=== PATIENT | female | born 1945 | race Caucasian/White ===

== ENCOUNTER 2018-02-13 19:51 | Inpatient (IN) | payer OTHER, BC ==
[~2018-02-13] VITALS: Ht 172.7 cm; Wt 89.8 kg
[~2018-02-13 19:51] MED LIST: AUGMENTIN 875875 M1 PO; NORCO 7.5-3251 EACH PO
[2018-02-13 19:52] VITALS: BP 179/86
[2018-02-13] MEDS ORDERED: REGLAN 10 MG TA10 MG PO (20:00)
[2018-02-13] MEDS ORDERED: DHA100 MG PO (20:01)
[2018-02-13] MEDS ORDERED: WELLBUTRIN SR150 MG PO (20:01)
[2018-02-13] MEDS ORDERED: CARTIA XT240 M1 PO (20:01)
[2018-02-13] MEDS ORDERED: OMEPRAZOLE40 MG PO (20:02)
[2018-02-13] MEDS ORDERED: SYNTHROID137 MC1 PO (20:02)
[2018-02-13] MEDS ORDERED: AMITRIPTYLINE H25 M2 PO (20:02)
[2018-02-13] MEDS ORDERED: BREO ELLIPTA 11 EACH INH (20:03)
[2018-02-13] MEDS ORDERED: MYRBETRIQ50 MG PO (20:03)
[2018-02-13] MEDS ORDERED: FLONASE 0.05%50 MCG NASAL (20:04)
[2018-02-13] MEDS ORDERED: LIPITOR40 MG PO (20:04)
[2018-02-13] MEDS ORDERED: LANTUS100 UNIT/M SUBQ (20:04)
[2018-02-13] MEDS ORDERED: PLAVIX 75 MG TA75 M1 PO (20:04)
[2018-02-13] MEDS ORDERED: HUMALOG100 UNIT/1 SUBQ (20:05)
[2018-02-13 20:55] LABS: ABSOLUTE NEUTROPHILS 6.6 thou/uL (1.4-8.2); BASOPHILS 1.1 % (0.0-2.0); EOSINOPHILS 1.7 % (0.0-3.0); HEMATOCRIT 37.6 % (37.0-47.0); HEMOGLOBIN 12.7 gm/dL (12.0-15.0); LYMPHOCYTES 12.7 % (24.0-44.0); MCH 27.9 pg (26.0-34.0); MCHC 33.7 g/dL (28.0-37.0); MCV 82.7 fL (80.0-100.0); MONOCYTES 9.3 % (1.0-8.0); PLATELET COUNT 278 thou/uL (150-400); POLYS 75.2 % (36.0-66.0); RBC 4.55 mil/uL (4.20-5.00); RDW 16.3 % (10.5-14.5); WBC 8.8 thou/uL (4.0-11.0)
[2018-02-13 21:10] LABS: PROTIME 10.7 Seconds (9.3-11.4)
[2018-02-13 21:11] LABS: CREATININE 1.2 mg/dL (0.6-1.0); POTASSIUM 3.9 mmol/L (3.5-5.1)
[2018-02-13 23:17] VITALS: BP 180/77
[2018-02-13 23:30] VITALS: BP 168/98
[2018-02-13 23:47] VITALS: BP 180/77
[2018-02-14 04:05] VITALS: BP 184/97
[2018-02-14 07:12] LABS: CREATININE 1.2 mg/dL (0.6-1.0)
[2018-02-14 07:25] VITALS: BP 170/94
[2018-02-14 15:19] VITALS: BP 146/78
[2018-02-14 16:05] VITALS: BP 146/78
[2018-02-14 20:00] VITALS: BP 134/65
[2018-02-15 04:00] VITALS: BP 134/72
[2018-02-15 05:51] LABS: HEMATOCRIT 34.5 % (37.0-47.0); HEMOGLOBIN 11.6 gm/dL (12.0-15.0); MCH 28.1 pg (26.0-34.0); MCHC 33.6 g/dL (28.0-37.0); MCV 83.8 fL (80.0-100.0); RBC 4.11 mil/uL (4.20-5.00); RDW 16.4 % (10.5-14.5); WBC 7.6 thou/uL (4.0-11.0)
[2018-02-15 06:02] LABS: CALCIUM 8.6 mg/dL (8.5-10.1); CREATININE 1.1 mg/dL (0.6-1.0); POTASSIUM 3.9 mmol/L (3.5-5.1)
[2018-02-15 07:30] VITALS: BP 146/78
== END 2018-02-15 10:34 | disposition home health service (06) | DRG 157 ==
LOC: ER 19:51 → EROBS 22:54 → 3W 22:54 → ENTRNSPT 02-15 10:21 → EDTRNSPTSTS 02-15 10:26 → 3W 02-15 10:34
PROVIDERS: Internal Medicine; Nurse Practitioner Family; Physician Assistant
PROC: 0JQ13ZZ Repair Face Subcutaneous Tissue and Fascia, Percutaneous Approach (ICD-10-PCS; principal; 2018-02-13)
PROC: 0CQ1XZZ Repair Lower Lip, External Approach (ICD-10-PCS; principal; 2018-02-13)
DX: S01.511A Laceration without foreign body of lip, initial encounter (principal); E43 Unspecified severe protein-calorie malnutrition; E78.00 Pure hypercholesterolemia, unspecified; K21.9 Gastro-esophageal reflux disease without esophagitis; I10 Essential (primary) hypertension; S09.90XA Unspecified injury of head, initial encounter; D69.1 Qualitative platelet defects; T45.525A Adverse effect of antithrombotic drugs, initial encounter; R26.89 Other abnormalities of gait and mobility; E78.5 Hyperlipidemia, unspecified; I25.10 Atherosclerotic heart disease of native coronary artery without angina pectoris; E03.9 Hypothyroidism, unspecified; J44.9 Chronic obstructive pulmonary disease, unspecified; F32.9 Major depressive disorder, single episode, unspecified; S05.11XA Contusion of eyeball and orbital tissues, right eye, initial encounter; Z60.2 Problems related to living alone; E11.40 Type 2 diabetes mellitus with diabetic neuropathy, unspecified; M17.0 Bilateral primary osteoarthritis of knee; R29.6 Repeated falls; N32.81 Overactive bladder; E11.43 Type 2 diabetes mellitus with diabetic autonomic (poly)neuropathy; K31.84 Gastroparesis; Z95.5 Presence of coronary angioplasty implant and graft; Z90.49 Acquired absence of other specified parts of digestive tract; Z88.1 Allergy status to other antibiotic agents; Z88.8 Allergy status to other drugs, medicaments and biological substances; W18.39XA Other fall on same level, initial encounter; Y92.89 Other specified places as the place of occurrence of the external cause; Y99.8 Other external cause status; Y93.K1 Activity, walking an animal
CPT/HCPCS: 10080

== ENCOUNTER 2018-02-22 11:36 | Emergency (ER) | payer OTHER, BC ==
[~2018-02-22] VITALS: Ht 172.7 cm; Wt 90.7 kg
[~2018-02-22 11:36] MED LIST changes: +AMITRIPTYLINE H25 M2 PO; +BREO ELLIPTA 11 EACH INH; +CARTIA XT240 M1 PO; +DHA100 MG PO; +FLONASE 0.05%50 MCG NASAL; +HUMALOG100 UNIT/1 SUBQ; +LANTUS100 UNIT/M SUBQ; +LIPITOR40 MG PO; +MYRBETRIQ50 MG PO; +OMEPRAZOLE40 MG PO; +PLAVIX 75 MG TA75 M1 PO; +REGLAN 10 MG TA10 MG PO; +SYNTHROID137 MC1 PO; +WELLBUTRIN SR150 MG PO
== END 2018-02-22 13:40 | disposition home or self-care (01) ==
LOC: ER 11:36
DX: S01.511D Laceration without foreign body of lip, subsequent encounter (principal); S01.81XD Laceration without foreign body of other part of head, subsequent encounter; E11.9 Type 2 diabetes mellitus without complications; E78.5 Hyperlipidemia, unspecified; K21.9 Gastro-esophageal reflux disease without esophagitis; I10 Essential (primary) hypertension; Z95.5 Presence of coronary angioplasty implant and graft; Z90.49 Acquired absence of other specified parts of digestive tract; Z88.1 Allergy status to other antibiotic agents; Z88.8 Allergy status to other drugs, medicaments and biological substances; Z79.4 Long term (current) use of insulin; X58.XXXD Exposure to other specified factors, subsequent encounter

== ENCOUNTER → 2018-04-02 | Outpatient (CLI) | payer OTHER, BC ==
[2018-04-02 14:15] VITALS: BP 132/67
== END ==
LOC: SEN 08:36
DX: E03.9 Hypothyroidism, unspecified (principal); E11.9 Type 2 diabetes mellitus without complications; E55.9 Vitamin D deficiency, unspecified; Z79.4 Long term (current) use of insulin; Z83.3 Family history of diabetes mellitus

== ENCOUNTER → 2018-04-08 | Outpatient (CLI) | payer OTHER, BC | LOC: SEN 15:10 | DX: Z09 Encounter for follow-up examination after completed treatment for conditions other than malignant neoplasm (principal); I10 Essential (primary) hypertension; E11.9 Type 2 diabetes mellitus without complications; E78.5 Hyperlipidemia, unspecified; K21.9 Gastro-esophageal reflux disease without esophagitis; Z79.4 Long term (current) use of insulin; Z83.3 Family history of diabetes mellitus; Z82.49 Family history of ischemic heart disease and other diseases of the circulatory system ==

== ENCOUNTER → 2018-05-14 | Outpatient (CLI) | payer OTHER, BC | LOC: RAD 02:35 | DX: Z12.31 Encounter for screening mammogram for malignant neoplasm of breast (principal) ==

== ENCOUNTER → 2018-06-10 | Outpatient (CLI) | payer OTHER, BC ==
[~2018-06-10] MED LIST changes: +ASPIR 8181 M1 PO; +FISH OIL 1,001000 M2 PO; +VITAMIN D3400 UNIT PO
[2018-06-10 10:33] VITALS: BP 148/71
== END ==
LOC: SEN 10:16
DX: E11.9 Type 2 diabetes mellitus without complications (principal); I10 Essential (primary) hypertension; E78.5 Hyperlipidemia, unspecified; K21.9 Gastro-esophageal reflux disease without esophagitis; Z88.9 Allergy status to unspecified drugs, medicaments and biological substances; Z90.49 Acquired absence of other specified parts of digestive tract; Z95.5 Presence of coronary angioplasty implant and graft

== ENCOUNTER 2018-08-27 13:30 | Inpatient (IN) | payer OTHER, BC ==
[~2018-08-27] VITALS: Ht 172.7 cm; Wt 91.2 kg
[2018-08-27] MEDS ORDERED: AMITRIPTYLINE H25 M2 PO (14:10)
[2018-08-27] MEDS ORDERED: VITAMIN D3400 UNIT PO (14:12)
[2018-08-27] MEDS ORDERED: FLAX OIL1000 MG PO (14:12)
[2018-08-27] MEDS ORDERED: BORAGE OIL PO (14:13)
[2018-08-27] MEDS ORDERED: FISH-FLAX-BORA1 EACH PO (14:17)
[2018-08-27 16:16] LABS: ABSOLUTE NEUTROPHILS 6.8 thou/uL (1.4-8.2); BASOPHILS 0.8 % (0.0-2.0); EOSINOPHILS 0.9 % (0.0-3.0); HEMATOCRIT 39.9 % (37.0-47.0); HEMOGLOBIN 13.1 gm/dL (12.0-15.0); LYMPHOCYTES 17.5 % (24.0-44.0); MCH 27.6 pg (26.0-34.0); MCHC 32.9 g/dL (28.0-37.0); MCV 83.9 fL (80.0-100.0); MONOCYTES 9.6 % (1.0-8.0); PLATELET COUNT 238 thou/uL (150-400); POLYS 71.2 % (36.0-66.0); RBC 4.75 mil/uL (4.20-5.00); RDW 15.1 % (10.5-14.5); WBC 9.6 thou/uL (4.0-11.0)
[2018-08-27 16:19] LABS: URINE BILIRUBIN NEGATIVE (Negative); URINE BLOOD NEGATIVE (Negative); URINE CLARITY CLEAR; URINE COLOR YELLOW; URINE GLUCOSE-RANDOM* 1+ (Negative); URINE KETONES NEGATIVE (Negative); URINE LEUKOCYTES-REFLEX NEGATIVE (Negative); URINE NITRITE-REFLEX NEGATIVE (Negative); URINE PROTEIN (DIPSTICK) 1+ (Negative); URINE SPECIFIC GRAVITY 1.015 (1.005-1.035); URINE UROBILINOGEN 0.2 E.U./dl (0.2-1.0)
[2018-08-27 16:25] LABS: ANION GAP 9 mmol/L (7-16); BUN 20 mg/dL (7-18); CALCIUM 9.3 mg/dL (8.5-10.1); CHLORIDE 101 mmol/L (98-107); CO2 30 mmol/L (21-32); CREATININE 1.3 mg/dL (0.6-1.0); GLUCOSE 145 mg/dL (74-106); POTASSIUM 4.3 mmol/L (3.5-5.1); SODIUM 140 mmol/L (136-145)
[2018-08-27 16:28] LABS: AMP/METHAMP Negative (Negative); BARBITURATES Negative (Negative); BENZODIAZEPINES Negative (Negative); COCAINE Negative (Negative); METHADONE Negative (Negative); OPIATES Negative (Negative); PCP Negative (Negative)
[2018-08-27 16:29] LABS: APTT 50.4 Seconds (24.5-32.8); PROTIME 10.7 Seconds (9.3-11.4)
[2018-08-27 16:29] LABS: BACTERIA-REFLEX 1-9 Few /HPF (None Seen); CASTS None Seen /LPF (None Seen); CRYSTALS None Seen /LPF (None Seen); SQUAMOUS 0-3 Few /LPF (0-3); URINE RBC None Seen /HPF (0-2); URINE WBC-REFLEX None Seen /HPF (0-5)
[2018-08-27 16:34] LABS: ALBUMIN 3.7 g/dL (3.4-5.0); MAGNESIUM 1.9 mg/dL (1.8-2.4); SGOT 21 U/L (15-37); SGPT 36 U/L (30-65); TOTAL BILIRUBIN 0.4 mg/dL (<0.1-1.0); TOTAL PROTEIN 7.3 g/dL (6.4-8.2); TROPONIN-I <0.06 ng/mL (<0.06)
[2018-08-27 23:24] VITALS: BP 123/60
[2018-08-28 05:18] LABS: HEMATOCRIT 34.8 % (37.0-47.0); HEMOGLOBIN 11.5 gm/dL (12.0-15.0); MCH 27.9 pg (26.0-34.0); MCHC 33.2 g/dL (28.0-37.0); RBC 4.14 mil/uL (4.20-5.00); RDW 15.2 % (10.5-14.5); WBC 7.3 thou/uL (4.0-11.0)
[2018-08-28 05:34] LABS: CALCIUM 8.6 mg/dL (8.5-10.1); CREATININE 1.3 mg/dL (0.6-1.0); POTASSIUM 3.7 mmol/L (3.5-5.1)
--- NOTE | 2018-08-28 06:29 | NUR ---
PT IN ER HOLD. PT IS STILL HAVING VISUAL DISTURBANCE OF LIGHT WITH COLORS/LINES WITH OCCASSIONALLY HEADACHE. ASSESSMENT CHARTED. PLANS ARE TO HAVE MRI DONE TODAY WITH NEUROLOGY FOLLOW UP. CALL LIGHT IN REACH. CONTINUE WITH PLAN OF CARE.
--- NOTE | 2018-08-28 08:22 | NUR ---
DR THOMAS TO BEDSIDE. DR THOMAS GIVES VERBAL ORDER FOR MRA [place] OF CHENG AND MRA FOR CAROTID STUDIES WITH CONTRAST. ORDERS PLACE
--- NOTE | 2018-08-28 08:35 | EKG ---
[address] [address] ELECTROCARDIOGRAM REPORT Name: MARIXA PITTMAN Room #: 170-14 ADM IN .R.#: [id number] ������������������ Admission: 08/27/18 ������������������ Attend Phys: Dimitri Joyner MD Discharge: ������������������ Date of : 49 Report #: [id number] ����������������������������������������������������������������� [id number] THIS REPORT FOR: //name// [facility] ED Test Date: 2018-08-27 Test Time: 17:54:09 Pat Name: MARIXA PITTMAN Department: Room: 170 Gender: F Resident Care Coordinator: : 1945 Requested By: Artemio Mirza Order Number: [id number] MD: Damien García Measurements Intervals Dewy Rose Rate: 72 P: 31 AK: 183 QRS: -23 QRSD: 82 T: 161 QT: 375 QTc: 411 Interpretive Statements Sinus rhythm Ventricular premature complex Compared to ECG 12/11/2008 18:38:54 Ventricular premature complex(es) now present Electronically Signed On 08-28-2018 8:35:45 PROCESS DESIGNER by Damien García [email or web address] ��������������������������������������������� <ELECTRONICALLY SIGNED> ���������������������������������������� By: Damien García MD ��������������������������������������������� 08/28/18 0835 [id number] Damien García MD /VERA
[2018-08-28 13:53] VITALS: BP 123/71
[2018-08-28 14:31] VITALS: BP 123/72
--- NOTE | 2018-08-28 14:35 | NUR ---
REPORT CALLED TO NURSE ON 3W. TRANSPORTED VIA .
--- NOTE | 2018-08-28 18:53 | NUR ---
[age] YE[age] OLD FEMALE ADMITTED TO [address] UNDER THE CARE OF DR. RESENDIZ. PT CAME INTO THE ER AFTER C/O OF HAVING COLORED SPOTS AROUND HER RIGHT EYE THAT STARTED YESTERDAY. PT STATES SHE FEEL BETTER NOW. PT ALERT AND ORIENTED TIMES FOUR. VSS. 98%RA, SR ON TELE, IVF INFUSING PER ORDER. PT DID C/O HAVING AT HEADACE PRN MEDS GIVEN WITH GOOD RELEIF. PT TOLERATES MEDS AND MEALS. PT UP AB [place] WITH STEADY GAIT. WILL CONTIUE TO MONITOR.
[2018-08-28 19:50] VITALS: BP 157/84
[2018-08-29 00:05] VITALS: BP 162/82
[2018-08-29 03:50] VITALS: BP 141/79
--- NOTE | 2018-08-29 05:45 | NUR ---
PT MAKING SLOW PROGRESS TOWARDS GOALS. PT REPORTED X2 BRIEF VISUAL OCCURENCES IN HER RIGHT EYE OVERNIGHT. PT HAD DESCRIBED THEM FLASHING/FLICKERING, VERY BRIEF AND SEEMINGLY AT RANDOM. HAS DENIED ANY FURTHER OCCURENCES. CONTINUE TO MONITOR.
[2018-08-29 07:54] VITALS: BP 155/94
[2018-08-29 11:45] VITALS: BP 148/83
[2018-08-29 12:52] VITALS: BP 148/83
[2018-08-29 13:30] VITALS: BP 148/83
--- NOTE | 2018-08-29 13:32 | NUR ---
ASSUMED CARE OF PT AT 0700 THIS SHIFT. PT HAS BEEN COOPERATIVE, HAS DENIED ANY PAIN THIS SHIFT. PT HAS BEEN RESTING COMFORTABLY IN HER ROOM THIS SHIFT. PT ATE LATE BREACKFAST, ACCUCHECK AND LUNCH WAS ABOUT AN HOUR AND HALF AFTER LUNCH. PT HAS DISCHARGE ORDERS. PT HAS NOT HAD VISITORS THIS SHIFT, EDUCATION WAS PROVIDED. PLAN OF CARE IS TO DISCHARGE PT THIS SHIFT.
== END 2018-08-29 13:32 | disposition home or self-care (01) | DRG 66 ==
LOC: ER 13:30 → 3W 17:43 → EROBS 17:43 → 3W 08-28 14:27
PROVIDERS: Emergency Medicine; ADMIT Hospitalist
DX: I63.9 Cerebral infarction, unspecified (principal); E11.9 Type 2 diabetes mellitus without complications; E78.5 Hyperlipidemia, unspecified; K21.9 Gastro-esophageal reflux disease without esophagitis; E03.9 Hypothyroidism, unspecified; Z60.2 Problems related to living alone; N32.81 Overactive bladder; Z95.5 Presence of coronary angioplasty implant and graft; Z90.49 Acquired absence of other specified parts of digestive tract; Z88.1 Allergy status to other antibiotic agents; Z88.8 Allergy status to other drugs, medicaments and biological substances; Z83.3 Family history of diabetes mellitus; Z82.49 Family history of ischemic heart disease and other diseases of the circulatory system; Z79.82 Long term (current) use of aspirin; Z79.899 Other long term (current) drug therapy
CPT/HCPCS: 10879